=== PATIENT | female | born 1980 | race African-American/Black ===

== ENCOUNTER 2021-01-24 00:51 | Emergency (ER) | payer MEDICAID ==
[~2021-01-24] VITALS: Ht 180.3 cm; Wt 86.2 kg
[2021-01-24] MEDS ORDERED: MORPHINE SULFATE 4 MG/ML SYR/VIAL IV ONE (01:30)
[2021-01-24] MEDS ORDERED: ONDANSETRON HCL 4 MG/2 ML VIAL IV ONE (01:30)
[2021-01-24 02:40] VITALS: BP 123/73
== END 2021-01-24 02:51 | disposition left against medical advice (07) ==
LOC: ER 00:51
DX: S05.22XA Ocular laceration and rupture with prolapse or loss of intraocular tissue, left eye, initial encounter (principal); W26.8XXA Contact with other sharp object(s), not elsewhere classified, initial encounter; Y93.89 Activity, other specified; Y92.89 Other specified places as the place of occurrence of the external cause; Y99.8 Other external cause status
CPT/HCPCS: 96374; 96375; 99284; J2270; J2405